=== PATIENT | female | born 1965 | race Caucasian/White ===

== ENCOUNTER 2019-05-02 05:42 | Day surgery (SDC) | payer BC ==
[2019-05-02] MEDS: LACTATED RINGER'S 1,000 ML (ENTER RATE) IV (06:58)
[2019-05-02] MEDS ORDERED: ONDANSETRON 4 MG INJ IV (07:30)
[2019-05-02] MEDS ORDERED: ALBUTEROL 0.083% (NEB) 2.5 MG/3 ML AMP HHN (07:30)
[2019-05-02] MEDS ORDERED: DESFLURANE 15 MIN (07:30)
[2019-05-02] MEDS ORDERED: DIPHENHYDRAMINE 50 MG INJ IV (07:30)
[2019-05-02] MEDS ORDERED: CEFAZOLIN 1 GM INJ (07:30)
[2019-05-02] MEDS ORDERED: MEPERIDINE 25 MG INJ IV (07:30)
[2019-05-02] MEDS ORDERED: FENTAnyl 50 MCG/ML VIAL IV ×2 (07:30)
[2019-05-02] MEDS ORDERED: HYDROmorphONE 1 MG/5 ML IV SYRINGE IV ×3 (07:30)
[2019-05-02] MEDS ORDERED: METOCLOPRAMIDE 10 MG INJ IV (07:30)
[2019-05-02] MEDS ORDERED: FENTAnyl 50 MCG/ML VIAL (07:36)
[2019-05-02] MEDS ORDERED: DEXAMETHASONE 4 MG/ML 5 ML INJ (07:48)
[2019-05-02] MEDS ORDERED: METOCLOPRAMIDE 10 MG INJ (07:48)
[2019-05-02] MEDS ORDERED: SUCCINYLCHOLINE CHLORIDE 100 MG/5 ML SYG IV (07:48)
[2019-05-02] MEDS ORDERED: PROPOFOL 20 ML (07:48)
[2019-05-02] MEDS ORDERED: ROCURONIUM 50 MG INJ (07:48)
[2019-05-02] MEDS ORDERED: LIDOCAINE 100 MG SYRINGE (07:48)
[2019-05-02] MEDS ORDERED: ONDANSETRON 4 MG INJ (07:48)
[2019-05-02] MEDS ORDERED: SUGAMMADEX SODIUM 200 MG/2 ML VIAL IV (07:53)
== END 2019-05-02 10:30 | disposition home or self-care (01) ==
LOC: SDS 05:42
DX: N84.0 Polyp of corpus uteri (principal)
CPT/HCPCS: 58558; 88305